=== PATIENT | female | born 1970 | race Caucasian/White ===

== ENCOUNTER 2017-05-12 05:27 | Inpatient (IN) | payer MEDICAID ==
[2017-05-12] MEDS: BUPIVACAINE 0.25% (MPF) 30 ML INJ
[2017-05-12] MEDS: SOD CHLORIDE 0.9% 1,000 ML IV ×3 (06:00→16:31)
[2017-05-12] MEDS ORDERED: CEFAZOLIN 2 GM/50 ML (PMX) 50 ML IVPB (06:00)
[2017-05-12] MEDS: metroNIDAZOLE 500 MG/NS (PMX) 100 ML IVPB (06:30)
[2017-05-12] MEDS: AMPICILLIN/SULB 3 GM/NS (PMX) 100 ML IVPB (06:30)
[2017-05-12] MEDS ORDERED: ACETAMINOPHEN 1000 MG/100 ML IVPB (07:00)
[2017-05-12] MEDS ORDERED: ROCURONIUM 50 MG INJ ×2 (07:31→08:33)
[2017-05-12] MEDS ORDERED: LIDOCAINE 1% (MDV) 20 ML INJ (07:32)
[2017-05-12] MEDS ORDERED: PROPOFOL 20 ML (07:32)
[2017-05-12] MEDS ORDERED: MIDAZOLAM 1 MG/ML 2 ML INJ (07:32)
[2017-05-12] MEDS ORDERED: SUCCINYLCHOLINE CHLORIDE 100 MG/5 ML SYG IV (07:32)
[2017-05-12] MEDS ORDERED: ROPIVACAINE 0.2% 20 ML VIAL (07:36)
[2017-05-12] MEDS ORDERED: DEXAMETHASONE 4 MG/ML 1 ML INJ (07:37)
[2017-05-12] MEDS ORDERED: METOCLOPRAMIDE 10 MG INJ (08:32)
[2017-05-12] MEDS ORDERED: FAMOTIDINE 20 MG INJ (08:32)
[2017-05-12] MEDS ORDERED: ONDANSETRON 4 MG INJ (08:32)
[2017-05-12] MEDS ORDERED: KETOROLAC 30 MG INJ (08:46)
[2017-05-12] MEDS ORDERED: SUGAMMADEX SODIUM 200 MG/2 ML VIAL IV (08:59)
[2017-05-12] MEDS ORDERED: LABETALOL HCL 20MG INJ IV (09:00)
[2017-05-12] MEDS ORDERED: HYDROmorphONE (0.2 MG/ML) 10ML SYG IV (09:00)
[2017-05-12] MEDS ORDERED: hydrALAzine 20 MG INJ IV (09:00)
[2017-05-12] MEDS: POLYMYXIN/BACITRACIN 1L IRRIG (09:00)
[2017-05-12] MEDS ORDERED: HYDROCODONE/APAP (10/325) TAB PO (09:30)
[2017-05-12] MEDS ORDERED: morphine 2 MG INJ IV (09:30)
[2017-05-12] MEDS: DIPHENHYDRAMINE 50 MG INJ IV (10:12)
[2017-05-12] MEDS: HYDROmorphONE (0.2 MG/ML) 10ML SYG IV (10:12)
[2017-05-12 11:37] LABS: ADD MAN DIFF? NO
[2017-05-12 11:41] LABS: BASOPHIL # 0.1 10^3/ul (0.0-0.1); BASOPHILS % 0.6 % (0.0-2.0); EOSINOPHILS % 0.2 % (0.0-7.0); HEMATOCRIT 42.8 % (37.0-47.0); HEMOGLOBIN 14.3 g/dl (12.0-16.0); LYMPHOCYTES # 1.2 10^3/ul (0.8-2.9); LYMPHOCYTES % 6.3 % (15.0-51.0); MEAN CORPUSCULAR HEMOGLOBIN 30.2 pg (29.0-33.0); MEAN CORPUSCULAR HGB CONC 33.4 g/dl (32.0-37.0); MEAN CORPUSCULAR VOLUME 90.3 fl (82.0-101.0); MEAN PLATELET VOLUME 9.1 fl (7.4-10.4); MONOCYTE # 0.5 10^3/ul (0.3-0.9); MONOCYTES % 2.9 % (0.0-11.0); NEUTROPHIL # 16.6 10^3/ul (1.6-7.5); NEUTROPHILS % 89.5 % (39.0-77.0); PLATELET COUNT 394 10^3/UL (140-415); RED BLOOD COUNT 4.74 10^6/ul (4.20-5.40); RED CELL DISTRIBUTION WIDTH 12.7 % (11.5-14.5)
[2017-05-12 11:51] LABS: HOLD TRANSMISSIONS 1
[2017-05-12 11:58] LABS: WHITE BLOOD COUNT 18.6 10^3/ul (4.8-10.8)
[2017-05-12 12:01] LABS: ALANINE AMINOTRANSFERASE 37 IU/L (13-69); ALBUMIN 4.1 g/dl (3.3-4.9); ALBUMIN/GLOBULIN RATIO 1.17; ALKALINE PHOSPHATASE 76 IU/L (42-121); ANION GAP 22 (8-16); ASPARTATE AMINO TRANSFERASE 33 IU/L (15-46); BILIRUBIN,INDIRECT 0.2 mg/dl (0-1.1); BILIRUBIN,TOTAL 0.2 mg/dl (0.2-1.3); BLOOD UREA NITROGEN 10 mg/dl (7-20); CALCIUM 8.3 mg/dl (8.4-10.2); CARBON DIOXIDE 22 mmol/L (21-31); CHLORIDE 106 mmol/L (97-110); CREATININE 0.58 mg/dl (0.44-1.00); GLUCOSE 236 mg/dl (70-220); POTASSIUM 5.3 mmol/L (3.5-5.1); SODIUM 145 mmol/L (135-144); TOTAL PROTEIN 7.6 g/dl (6.1-8.1)
[2017-05-12] MEDS: ACCU-CHEK XX ×2 (12:30→18:00)
[2017-05-12] MEDS ORDERED: GLUCOSE GEL 15 GRAM TUBE BUCCAL (13:00)
[2017-05-12] MEDS ORDERED: GLUCOSE GEL 15 GRAM TUBE PO ×2 (13:00)
[2017-05-12] MEDS ORDERED: DEXTROSE 50% 50 ML SYRINGE IV ×2 (13:00)
[2017-05-12] MEDS ORDERED: GLUCAGON 1 MG INJ IM (13:00)
[2017-05-12] MEDS: CEFAZOLIN 2 GM/50 ML (PMX) 50 ML IVPB ×2 (13:30→21:17)
[2017-05-12] MEDS: HEPARIN 5,000 UNIT/0.5 ML VIAL SC (13:45)
[2017-05-12] MEDS: INSULIN ASPART [NOVOLOG] 3 ML PEN SC ×3 (13:46→23:54)
[2017-05-12 15:28] LABS: ADD MAN DIFF? NO
[2017-05-12 15:31] LABS: BASOPHIL # 0.1 10^3/ul (0.0-0.1); BASOPHILS % 0.4 % (0.0-2.0); EOSINOPHILS % 0.1 % (0.0-7.0); HEMATOCRIT 40.2 % (37.0-47.0); HEMOGLOBIN 13.5 g/dl (12.0-16.0); LYMPHOCYTES % 6.7 % (15.0-51.0); MEAN CORPUSCULAR HEMOGLOBIN 30.1 pg (29.0-33.0); MEAN CORPUSCULAR HGB CONC 33.6 g/dl (32.0-37.0); MEAN CORPUSCULAR VOLUME 89.7 fl (82.0-101.0); MEAN PLATELET VOLUME 9.3 fl (7.4-10.4); MONOCYTE # 0.3 10^3/ul (0.3-0.9); MONOCYTES % 2.1 % (0.0-11.0); NEUTROPHIL # 13.5 10^3/ul (1.6-7.5); NEUTROPHILS % 90.2 % (39.0-77.0); PLATELET COUNT 381 10^3/UL (140-415); RED BLOOD COUNT 4.48 10^6/ul (4.20-5.40); RED CELL DISTRIBUTION WIDTH 12.7 % (11.5-14.5)
[2017-05-12 16:00] LABS: ANION GAP 18 (8-16); BLOOD UREA NITROGEN 11 mg/dl (7-20); CALCIUM 8.7 mg/dl (8.4-10.2); CARBON DIOXIDE 27 mmol/L (21-31); CHLORIDE 104 mmol/L (97-110); CREATININE 0.62 mg/dl (0.44-1.00); GLUCOSE 247 mg/dl (70-220); POTASSIUM 4.9 mmol/L (3.5-5.1); SODIUM 144 mmol/L (135-144)
[2017-05-12] MEDS: morphine 2 MG INJ IV ×2 (19:36→23:49)
[2017-05-13] MEDS: ACCU-CHEK XX ×4 (00:27→17:51)
[2017-05-13] MEDS: morphine 2 MG INJ IV ×3 (02:53→07:45)
[2017-05-13 05:19] LABS: ADD MAN DIFF? NO
[2017-05-13 05:27] LABS: WHITE BLOOD COUNT 10.9 10^3/ul (4.8-10.8)
[2017-05-13 05:27] LABS: BASOPHILS % 0.4 % (0.0-2.0); EOSINOPHILS % 0.3 % (0.0-7.0); HEMATOCRIT 35.5 % (37.0-47.0); HEMOGLOBIN 11.7 g/dl (12.0-16.0); LYMPHOCYTES # 2.6 10^3/ul (0.8-2.9); LYMPHOCYTES % 23.9 % (15.0-51.0); MEAN CORPUSCULAR HEMOGLOBIN 29.9 pg (29.0-33.0); MEAN CORPUSCULAR VOLUME 90.8 fl (82.0-101.0); MEAN PLATELET VOLUME 9.1 fl (7.4-10.4); MONOCYTES % 9.4 % (0.0-11.0); NEUTROPHIL # 7.1 10^3/ul (1.6-7.5); NEUTROPHILS % 65.6 % (39.0-77.0); PLATELET COUNT 349 10^3/UL (140-415); RED BLOOD COUNT 3.91 10^6/ul (4.20-5.40); RED CELL DISTRIBUTION WIDTH 12.8 % (11.5-14.5)
[2017-05-13] MEDS: CEFAZOLIN 2 GM/50 ML (PMX) 50 ML IVPB ×3 (05:27→21:35)
[2017-05-13] MEDS: INSULIN ASPART [NOVOLOG] 3 ML PEN SC ×6 (05:29→20:35)
[2017-05-13 05:57] LABS: ALANINE AMINOTRANSFERASE 28 IU/L (13-69); ALBUMIN 3.6 g/dl (3.3-4.9); ALKALINE PHOSPHATASE 59 IU/L (42-121); ANION GAP 15 (8-16); ASPARTATE AMINO TRANSFERASE 23 IU/L (15-46); BILIRUBIN,INDIRECT 0.2 mg/dl (0-1.1); BILIRUBIN,TOTAL 0.2 mg/dl (0.2-1.3); BLOOD UREA NITROGEN 9 mg/dl (7-20); CALCIUM 8.2 mg/dl (8.4-10.2); CARBON DIOXIDE 29 mmol/L (21-31); CHLORIDE 105 mmol/L (97-110); CREATININE 0.66 mg/dl (0.44-1.00); GLUCOSE 176 mg/dl (70-220); POTASSIUM 4.1 mmol/L (3.5-5.1); SODIUM 145 mmol/L (135-144); TOTAL PROTEIN 6.6 g/dl (6.1-8.1)
[2017-05-13 06:20] LABS: ANION GAP 15 (8-16); BLOOD UREA NITROGEN 9 mg/dl (7-20); CALCIUM 8.3 mg/dl (8.4-10.2); CARBON DIOXIDE 29 mmol/L (21-31); CHLORIDE 105 mmol/L (97-110); CREATININE 0.61 mg/dl (0.44-1.00); GLUCOSE 172 mg/dl (70-220); POTASSIUM 4.3 mmol/L (3.5-5.1); SODIUM 145 mmol/L (135-144)
[2017-05-13] MEDS: SOD CHLORIDE 0.9% 1,000 ML IV ×2 (06:47→17:51)
[2017-05-13] MEDS: INSULIN GLARGINE [LANtus] 3 ML PEN SC (08:58)
[2017-05-13] MEDS: HEPARIN 5,000 UNIT/0.5 ML VIAL SC ×2 (08:58→21:38)
[2017-05-13] MEDS: PANTOPRAZOLE 40 MG INJ IV (13:48)
[2017-05-13] MEDS: ONDANSETRON 4 MG INJ IV ×2 (13:48→18:20)
[2017-05-14] MEDS: ACCU-CHEK XX ×4 (00:47→17:43)
[2017-05-14] MEDS: INSULIN ASPART [NOVOLOG] 3 ML PEN SC ×6 (01:00→21:00)
[2017-05-14] MEDS: ONDANSETRON 4 MG INJ IV (02:08)
[2017-05-14 05:15] LABS: ADD MAN DIFF? NO
[2017-05-14 05:17] LABS: BASOPHIL # 0.1 10^3/ul (0.0-0.1); BASOPHILS % 0.6 % (0.0-2.0); EOSINOPHILS # 0.1 10^3/ul (0.0-0.5); EOSINOPHILS % 0.4 % (0.0-7.0); HEMATOCRIT 35.7 % (37.0-47.0); HEMOGLOBIN 12.1 g/dl (12.0-16.0); LYMPHOCYTES # 2.3 10^3/ul (0.8-2.9); LYMPHOCYTES % 19.6 % (15.0-51.0); MEAN CORPUSCULAR HEMOGLOBIN 30.3 pg (29.0-33.0); MEAN CORPUSCULAR HGB CONC 33.9 g/dl (32.0-37.0); MEAN CORPUSCULAR VOLUME 89.3 fl (82.0-101.0); MONOCYTE # 0.9 10^3/ul (0.3-0.9); MONOCYTES % 7.7 % (0.0-11.0); NEUTROPHIL # 8.3 10^3/ul (1.6-7.5); PLATELET COUNT 327 10^3/UL (140-415); RED CELL DISTRIBUTION WIDTH 12.5 % (11.5-14.5)
[2017-05-14 05:17] LABS: WHITE BLOOD COUNT 11.6 10^3/ul (4.8-10.8)
[2017-05-14] MEDS: PANTOPRAZOLE 40 MG INJ IV (05:23)
[2017-05-14] MEDS: CEFAZOLIN 2 GM/50 ML (PMX) 50 ML IVPB ×3 (05:24→21:07)
[2017-05-14 05:40] LABS: ANION GAP 13 (8-16); BLOOD UREA NITROGEN 9 mg/dl (7-20); CALCIUM 7.9 mg/dl (8.4-10.2); CARBON DIOXIDE 29 mmol/L (21-31); CHLORIDE 105 mmol/L (97-110); CREATININE 0.56 mg/dl (0.44-1.00); GLUCOSE 140 mg/dl (70-220); POTASSIUM 3.7 mmol/L (3.5-5.1); SODIUM 143 mmol/L (135-144)
[2017-05-14] MEDS: SOD CHLORIDE 0.9% 1,000 ML IV ×3 (07:15→21:18)
[2017-05-14] MEDS: KETOROLAC 30 MG INJ IV (09:29)
[2017-05-14] MEDS: INSULIN GLARGINE [LANtus] 3 ML PEN SC (09:35)
[2017-05-14] MEDS: HEPARIN 5,000 UNIT/0.5 ML VIAL SC ×2 (09:35→21:09)
[2017-05-14] MEDS ORDERED: KETOROLAC 15 MG INJ IV (17:00)
[2017-05-15] MEDS: INSULIN ASPART [NOVOLOG] 3 ML PEN SC ×6 (01:00→20:47)
[2017-05-15] MEDS: HYDROCODONE/APAP (5/325) TAB PO ×6 (01:26→20:00)
[2017-05-15 05:08] LABS: ADD MAN DIFF? NO
[2017-05-15 05:11] LABS: BASOPHIL # 0.1 10^3/ul (0.0-0.1); BASOPHILS % 0.6 % (0.0-2.0); EOSINOPHILS # 0.3 10^3/ul (0.0-0.5); EOSINOPHILS % 2.9 % (0.0-7.0); HEMATOCRIT 34.6 % (37.0-47.0); HEMOGLOBIN 11.5 g/dl (12.0-16.0); LYMPHOCYTES # 2.7 10^3/ul (0.8-2.9); LYMPHOCYTES % 25.3 % (15.0-51.0); MEAN CORPUSCULAR HEMOGLOBIN 29.6 pg (29.0-33.0); MEAN CORPUSCULAR HGB CONC 33.2 g/dl (32.0-37.0); MEAN CORPUSCULAR VOLUME 88.9 fl (82.0-101.0); MONOCYTE # 0.9 10^3/ul (0.3-0.9); MONOCYTES % 8.1 % (0.0-11.0); NEUTROPHIL # 6.7 10^3/ul (1.6-7.5); NEUTROPHILS % 62.3 % (39.0-77.0); PLATELET COUNT 308 10^3/UL (140-415); RED BLOOD COUNT 3.89 10^6/ul (4.20-5.40); RED CELL DISTRIBUTION WIDTH 12.3 % (11.5-14.5)
[2017-05-15 05:11] LABS: WHITE BLOOD COUNT 10.8 10^3/ul (4.8-10.8)
[2017-05-15] MEDS: CEFAZOLIN 2 GM/50 ML (PMX) 50 ML IVPB ×3 (05:31→22:00)
[2017-05-15] MEDS: SOD CHLORIDE 0.9% 1,000 ML IV (05:37)
[2017-05-15] MEDS: PANTOPRAZOLE 40 MG INJ IV (05:48)
[2017-05-15 05:49] LABS: ANION GAP 12 (8-16); BLOOD UREA NITROGEN 9 mg/dl (7-20); CARBON DIOXIDE 31 mmol/L (21-31); CHLORIDE 105 mmol/L (97-110); GLUCOSE 112 mg/dl (70-220); POTASSIUM 3.6 mmol/L (3.5-5.1); SODIUM 144 mmol/L (135-144)
[2017-05-15] MEDS: ACCU-CHEK XX ×4 (06:00→18:00)
[2017-05-15] MEDS: HEPARIN 5,000 UNIT/0.5 ML VIAL SC ×2 (08:44→21:00)
[2017-05-15] MEDS: INSULIN GLARGINE [LANtus] 3 ML PEN SC (08:47)
[2017-05-16] MEDS: ACCU-CHEK XX ×3 (00:25→12:54)
[2017-05-16] MEDS: INSULIN ASPART [NOVOLOG] 3 ML PEN SC ×4 (01:00→13:27)
[2017-05-16] MEDS: SOD CHLORIDE 0.9% 1,000 ML IV (01:10)
[2017-05-16] MEDS: PANTOPRAZOLE 40 MG INJ IV (06:00)
[2017-05-16] MEDS: CEFAZOLIN 2 GM/50 ML (PMX) 50 ML IVPB (06:00)
[2017-05-16] MEDS: HYDROCODONE/APAP (5/325) TAB PO ×2 (06:11→11:44)
[2017-05-16] MEDS ORDERED: BISACODYL 10 MG SUPP PR (09:00)
[2017-05-16] MEDS: HEPARIN 5,000 UNIT/0.5 ML VIAL SC (09:00)
[2017-05-16] MEDS: INSULIN GLARGINE [LANtus] 3 ML PEN SC (09:07)
== END 2017-05-16 15:25 | disposition home or self-care (01) | DRG 354 ==
LOC: SDS 05:27 → REC 09:30 → MS1 11:42
PROVIDERS: Surgery
PROC: 0WUF0JZ Supplement Abdominal Wall with Synthetic Substitute, Open Approach (ICD-10-PCS; principal; 2017-05-12 07:30)
DX: K43.0 Incisional hernia with obstruction, without gangrene (principal); Z68.41 Body mass index [BMI] 40.0-44.9, adult; E66.01 Morbid (severe) obesity due to excess calories; E11.9 Type 2 diabetes mellitus without complications; E87.5 Hyperkalemia; I10 Essential (primary) hypertension
CPT/HCPCS: 80048; 80053; 82962; 83036; 85025; 88302

== ENCOUNTER 2017-10-14 09:58 | Day surgery (SDC) | payer OTHER, MEDICAID ==
[2017-10-14] MEDS ORDERED: KETAMINE (50 MG/ML) 10 ML VIAL (11:10)
[2017-10-14] MEDS ORDERED: PROPOFOL 40 ML (11:11)
[2017-10-14] MEDS ORDERED: GLYCOPYRROLATE 0.4 MG INJ (11:15)
[2017-10-14] MEDS ORDERED: LIDOCAINE 2% (SDV) 5 ML INJ (11:15)
[2017-10-14] MEDS ORDERED: MIDAZOLAM 1 MG/ML 2 ML INJ (11:15)
== END 2017-10-14 13:27 | disposition home or self-care (01) ==
LOC: GIL 09:58
DX: K29.30 Chronic superficial gastritis without bleeding (principal); K21.9 Gastro-esophageal reflux disease without esophagitis; K64.8 Other hemorrhoids; I10 Essential (primary) hypertension; E11.9 Type 2 diabetes mellitus without complications; E78.5 Hyperlipidemia, unspecified; Z79.84 Long term (current) use of oral hypoglycemic drugs
CPT/HCPCS: 43239; 82962; 88305; 88312